=== PATIENT | female | born 1950 | race Caucasian/White ===

== ENCOUNTER 2018-03-12 10:07 | Emergency (ER) | payer MEDICARE ==
[2018-03-12] MEDS ORDERED: Sodium Chloride 0.9% 500 ML IV ONE (10:48)
[2018-03-12] MEDS ORDERED: Sodium Chloride 0.9% 10 ML Syringe FLUSH PRN (10:49)
[2018-03-12] MEDS ORDERED: Sodium Chloride 0.9% 1,000 ML IV SCH (12:00)
--- NOTE | 2018-03-12 12:19 | EDM.PDOC ---
ED HPI GENERAL MEDICAL PROBLEM - General Chief Complaint: Drug or Alcohol Abuse Stated Complaint: SENT BY DR. SANTIZO Time Seen by Provider: 03/12/18 10:35 Source of Information: Reports: Patient, RN Notes Reviewed - History of Present Illness INITIAL COMMENTS - FREE TEXT/NARRATIVE: 67 rolled female has been referred here from her clinic provider turnabout possible acetaminophen toxicity. She was prescribed 100 tablets Tylenol 4 1 week ago and they are totally gone. Patient does take Tylenol with codeine on a regular basis. She takes 2 tablets 4 times daily and has been doing this for over 20 years. This morning the bottle is empty. Her daughter states that her mother is starting to show some signs of confusion and is concerned that she may be forgetting and taking them more than 4 times daily. The patient has no explanation for how or why they can all be gone. She apparently ran out sometime in the last day or so. She states that she took an Advil last evening and then did take 1 again this morning. History of fibromyalgia, probable arthritis and does have what sounds like chronic pain syndrome that has been managed with the Tylenol with Codeine. She did vomit once last evening and that also was of some concern the family. She's not been vomiting this morning. She denies chest or abdominal pain at this time. Treatments OPTICAL DESIGNER: Reports: Acetaminophen Generalized Pain Score (Numeric/FACES): 7 - Related Data Allergies Allergy/AdvReac Type Severity Reaction Status Date / Time fenofibrate [From Tricor] Allergy Rash Verified 03/12/18 10:24 Penicillins Allergy Rash Verified 03/12/18 10:24 Home Meds: Home Meds Acetaminophen with Codeine [Acetaminophen-Cod #4] 2 tab PO Q4H PRN 03/12/18 [ History] Ascorbate Calcium [Vitamin C] 500 mg PO DAILY 03/12/18 [History] Cholecalciferol (Vitamin D3) [Vitamin D3] 1,000 unit PO DAILY 03/12/18 [History] Cyanocobalamin (Vitamin B-12) [Vitamin B-12] 1,000 mcg PO DAILY 03/12/18 [ History] Gemfibrozil 300 mg PO BID 03/12/18 [History] Ibuprofen [Motrin] 400 mg PO Q12HR #14 tab 03/12/18 [Rx] Insulin Glarg,Human.Rec.Analog [Lantus Solostar] 20 - 30 unit SQ BEDTIME [History] Pregabalin [Lyrica] 50 mg PO BID 03/12/18 [History] Rosuvastatin [Crestor] 5 mg PO DAILY 03/12/18 [History] Zonisamide [Zonegran] 100 mg PO DAILY 03/12/18 [History] Zonisamide [Zonegran] 300 mg PO BEDTIME 03/12/18 [History] amLODIPine Besylate [Amlodipine Besylate] 10 mg PO DAILY 03/12/18 [History] sitaGLIPtin Phos/Metformin HCl [Janumet 50-1,000 MG] 50 - 1,000 mg PO BID [History] Past Medical History HEENT History: Reports: Impaired Vision Other HEENT History: reading glasses. Cardiovascular History: Reports: Other (See Below) Other Cardiovascular History: patient states that she had a stress test one month ago and that the "bottom of heart is damaged" Respiratory History: Reports: Other (See Below) Other Respiratory History: pt. states she has uses an inhaler at home Gastrointestinal History: Reports: Bowel Obstruction Other Gastrointestinal History: bowel obstruction when she was 6yrs old Genitourinary History: Reports: UTI, Recurrent Other Genitourinary History: UTI two weeks ago. Antibiotics completed Musculoskeletal History: Reports: Fibromyalgia, Other (See Below) Other Musculoskeletal History: neuropathy Neurological History: Reports: Other (See Below) Other Neuro History: daughter states patient may have some dementia and has been having increased forgetfullness Endocrine/Metabolic History: Reports: Diabetes, Type II Other Endocrine/Metabolic History: Pt. also takes cholesterol medication - Infectious Disease History Infectious Disease History: Reports: Chicken Pox - Past Surgical History GI Surgical History: Reports: Appendectomy Other GI Surgeries/Procedures: appendectomy when she was 6yrs old Female Surgical History: Reports: Breast Biopsy Other Female Surgeries/Procedures: cyst removed. Social & Family History - Tobacco Use Smoking Status *Q: Current Every Day Smoker Years of Tobacco use: 3 Packs/Tins Daily: 0.2 - Caffeine Use Caffeine Use: Reports: Soda - Recreational Drug Use Recreational Drug Use: No ED ROS GENERAL - Review of Systems Review Of Systems: See Below Constitutional: Denies: Fever, Chills, Diaphoresis HEENT: Denies: Throat Pain Respiratory: Denies: Shortness of Breath Cardiovascular: Denies: Chest Pain GI/Abdominal: Reports: Other (No jaundice). Denies: Abdominal Pain, Nausea, Vomiting Musculoskeletal: Reports: Back Pain (Chronic) Skin: Denies: Rash Neurological: Reports: No Symptoms (No acute symptoms) ED EXAM, GENERAL - Physical Exam Exam: See Below Exam Limited By: No Limitations General Appearance: Alert, No Apparent Distress Eye Exam: Bilateral Eye: PERRL Throat/Mouth: Normal Inspection, Normal Oropharynx Head: Atraumatic Neck: Supple, Full Range of Motion Respiratory/Chest: No Respiratory Distress, Lungs Clear, Normal Breath Sounds Cardiovascular: Regular Rate, Rhythm GI/Abdominal: Soft, Non-Tender. No: Guarding Back Exam: No: CVA Tenderness (L), CVA Tenderness (R) Extremities: Normal Inspection, Normal Range of Motion. No: Pedal Edema, Leg Pain Neurological: Alert, No Motor/Sensory Deficits Skin Exam: Warm, Dry, Normal Color Course - Vital Signs Last Recorded V/S: Last Vital Signs Temp 98.2 F 03/12/18 12:20 Pulse 72 03/12/18 12:20 Resp 12 03/12/18 12:20 BP 122/59 L 03/12/18 12:20 Pulse Ox 98 03/12/18 12:20 - Orders/Labs/Meds Orders: Active Orders 24 hr Category Date Time Status Peripheral IV Care [RC] . DIRECTED Care 03/12/18 10:49 Active Sodium Chloride 0.9% [Normal Saline] 1,000 ml Med 03/12/18 12:00 Active IV ASDIRECTED Sodium Chloride 0.9% [Saline Flush] Med 03/12/18 10:49 Active 10 ml FLUSH ASDIRECTED PRN Peripheral IV Insertion Adult [OM.PC] Stat Oth 03/12/18 10:48 Ordered Medication Orders Sodium Chloride (Normal Saline) 1,000 mls @ 150 mls/hr IV ASDIRECTED MYLES Sodium Chloride (Saline Flush) 10 ml FLUSH ASDIRECTED PRN PRN Reason: Keep Vein Open Last Admin: 03/12/18 11:13 Dose: 10 ml Labs: Laboratory Tests 03/12/18 03/12/18 Range/Units 11:15 11:15 WBC 6.75 (3.98-10.04) K/mm3 RBC 3.83 L (3.98-5.22) M/mm3 Hgb 12.1 (11.2-15.7) gm/L Hct 35.1 (34.1-44.9) % MCV 91.6 (79.4-94.8) fl MCH 31.6 (25.6-32.2) pg MCHC 34.5 (32.2-35.5) g/dl RDW Std Deviation 42.7 (36.4-46.3) fL Plt Count 214 (182-369) K/mm3 MPV 10.0 (9.4-12.3) fl Neut % (Auto) 66.6 (34.0-71.1) % Lymph % (Auto) 22.5 (19.3-51.7) % [place]gett % (Auto) 8.7 (4.7-12.5) % Eos % (Auto) 1.8 (0.7-5.8) Baso % (Auto) 0.1 (0.1-1.2) % Neut # (Auto) 4.49 (1.56-6.13) K/mm3 Lymph # (Auto) 1.52 (1.18-3.74) K/mm3 Daggett # (Auto) 0.59 H (0.24-0.36) K/mm3 Eos # (Auto) 0.12 (0.04-0.36) K/mm3 Baso # (Auto) 0.01 (0.01-0.08) K/mm3 Sodium 138 (136-145) mEq/L Potassium 3.8 (3.5-5.1) mEq/L Chloride 103 (98-107) mEq/L Carbon Dioxide 23 (21-32) mEq/L Anion Gap 15.8 H (5-15) BUN 23 H (7-18) mg/dL Creatinine 1.0 (0.55-1.02) mg/dL Est Cr Clr Drug Dosing 43.77 mL/min Estimated GFR (MDRD) 55 (>60) mL/min BUN/Creatinine Ratio 23.0 H (14-18) Glucose 137 H (80-115) mg/dL Calcium 9.2 (8.5-10.1) mg/dL Total Bilirubin 0.3 (0.2-1.0) mg/dL AST 16 (15-37) U/L ALT 14 (14-59) U/L Alkaline Phosphatase 44 L (46-116) U/L Total Protein 7.1 (6.4-8.2) g/dl Albumin 3.7 (3.4-5.0) g/dl Globulin 3.4 gm/dL Albumin/Globulin Ratio 1.1 (1-2) Acetaminophen 0 L (10-30) ug/mL Meds: Medications Generic Name Dose Route Start Last Admin Trade Name Freq PRN Reason Stop Dose Admin Sodium Chloride 1,000 mls @ 150 mls/hr 03/12/18 12:00 Normal Saline IV ASDIRECTED MYLES Sodium Chloride 10 ml 03/12/18 10:49 03/12/18 11:13 Saline Flush FLUSH 10 ml ASDIRECTED PRN Administration Keep Vein Open Discontinued Medications Generic Name Dose Route Start Last Admin Trade Name Freq PRN Reason Stop Dose Admin Sodium Chloride 500 mls @ 999 mls/hr 03/12/18 10:48 03/12/18 11:13 Normal Saline IV 03/12/18 11:18 999 mls/hr .BOLUS ONE Administration - Re-Assessments/Exams Free Text/Narrative Re-Assessment/Exam: 03/12/18 13:12 Acetaminophen level did come back 0 suggesting that she has not had any Tylenol with codeine for at least the last 24 hours or more. She really seems to be doing okay off of that medication at this time. He states she did take 1 Advil last evening and then 1 again this morning and seems to be doing okay with that. Will bridge therapy her for now with Motrin 400 mg twice a day, short- term basis until she can follow-up with her regular provider, , discharge instructions as documented. Departure - Departure Time of Disposition: 12:14 Disposition: Home, Self-Care 01 Condition: Fair Clinical Impression: Fibromyalgia Chronic pain Qualifiers: Chronic pain type: chronic pain syndrome Qualified Code(s): G89.4 - Chronic pain syndrome - Discharge Information Prescriptions: Ibuprofen [Motrin] 400 mg PO Q12HR #14 tab Instructions: Chronic Pain, Adult, Musculoskeletal Pain Referrals: Angel Santizo MD [Primary Care Provider] - Additional Instructions: Urine acetaminophen level today was 0, for now take Motrin as prescribed 400 mg twice daily, take that with food, be sure to drink plenty of water when taking this medication, see Dr. Santizo early next week to discuss further treatment, call for appointment. - My Orders Last 24 Hours: My Active Orders 03/12/18 10:48 Peripheral IV Insertion Adult [OM.PC] Stat 03/12/18 10:49 Peripheral IV Care [RC] . DIRECTED Sodium Chloride 0.9% [Saline Flush] 10 ml FLUSH ASDIRECTED PRN 03/12/18 12:00 Sodium Chloride 0.9% [Normal Saline] 1,000 ml IV ASDIRECTED - Assessment/Plan Last 24 Hours: My Active Orders 03/12/18 10:48 Peripheral IV Insertion Adult [OM.PC] Stat 03/12/18 10:49 Peripheral IV Care [RC] . DIRECTED Sodium Chloride 0.9% [Saline Flush] 10 ml FLUSH ASDIRECTED PRN 03/12/18 12:00 Sodium Chloride 0.9% [Normal Saline] 1,000 ml IV ASDIRECTED
== END 2018-03-12 12:34 | disposition home or self-care (01) ==
LOC: JD.ED 10:07
DX: G89.4 Chronic pain syndrome (principal); M79.7 Fibromyalgia; F17.210 Nicotine dependence, cigarettes, uncomplicated; E11.9 Type 2 diabetes mellitus without complications; Z79.4 Long term (current) use of insulin; Z79.899 Other long term (current) drug therapy; Z88.0 Allergy status to penicillin; Z88.8 Allergy status to other drugs, medicaments and biological substances
CPT/HCPCS: 36415; 80053; 85025; 96360; 99284; G0480; J7040; J7050; 99283

== ENCOUNTER 2023-01-13 16:55 | Emergency (ER) | payer MEDICARE ==
[2023-01-13] MEDS ORDERED: Sodium Chloride 0.9% 1,000 ML ONE (17:27)
[2023-01-13] MEDS ORDERED: Sodium Chloride 0.9% 10 ML Syringe FLUSH PRN (18:04)
[2023-01-13 19:17] LABS: CORONAVIRUS COVID-19 NAA NEGATIVE (NEGATIVE)
[2023-01-13 19:46] LABS: ESTIMATED GFR 48 mL/min (>60)
[2023-01-13] MEDS ORDERED: Nitrofurantoin Monohydrate/Macrocrystalline 100 MG Cap PO ONE (20:19)
== END 2023-01-13 21:00 | disposition home or self-care (01) ==
LOC: JD.ED 16:55
DX: N39.0 Urinary tract infection, site not specified (principal); I10 Essential (primary) hypertension; E11.40 Type 2 diabetes mellitus with diabetic neuropathy, unspecified; Z88.0 Allergy status to penicillin; Z88.8 Allergy status to other drugs, medicaments and biological substances; Z20.822 Contact with and (suspected) exposure to COVID-19
CPT/HCPCS: 0240U; 36415; 71045; 80053; 81001; 85025; 86140; 87086; 99283

== ENCOUNTER 2023-01-22 13:34 | Inpatient (IN) | payer MEDICARE ==
[2023-01-22 14:22] LABS: BASOPHILS ABSOLUTE AUTO 0.02 K/mm3 (0.01-0.08); BASOPHILS PERCENT AUTO 0.2 % (0.1-1.2); EOSINOPHILS ABSOLUTE AUTO 0.14 K/mm3 (0.04-0.36); EOSINOPHILS PERCENT AUTO 1.3 (0.7-5.8); HEMATOCRIT 40.1 % (34.1-44.9); HEMOGLOBIN 13.5 gm/dl (11.2-15.7); IMMATURE GRAN ABSOLUTE AUTO 0.01 K/mm3 (0.00-0.10); IMMATURE GRAN PERCENT AUTO 0.1 % (<=1.0); LYMPHOCYTES ABSOLUTE AUTO 1.74 K/mm3 (1.18-3.74); LYMPHOCYTES PERCENT AUTO 16.7 % (19.3-51.7); MEAN CORPUSCULAR HEMOGLOBIN 29.9 pg (25.6-32.2); MEAN CORPUSCULAR HGB CONC 33.7 g/dl (32.2-35.5); MEAN CORPUSCULAR VOLUME 88.9 fl (79.4-94.8); MEAN PLATELET VOLUME 10.8 fl (9.4-12.3); MONOCYTES ABSOLUTE AUTO 0.62 K/mm3 (0.24-0.36); NEUTROPHILS ABSOLUTE AUTO 7.86 K/mm3 (1.56-6.13); NEUTROPHILS PERCENT AUTO 75.7 % (34.0-71.1); RED BLOOD CELL COUNT 4.51 M/mm3 (3.98-5.22); WHITE BLOOD CELL COUNT,WBC 10.39 K/mm3 (3.98-10.04)
[2023-01-22 14:24] LABS: APPEARANCE,URINE SLT CLOUDY (Clear); BILIRUBIN,URINE NEGATIVE (Negative); COLOR,URINE YELLOW (Yellow); GLUCOSE,URINE TRACE (Negative); KETONES,URINE TRACE (Negative); LEUKOCYTE ESTERASE,URINE TRACE (Negative); NITRITE,URINE NEGATIVE (Negative); OCCULT BLOOD,URINE TRACE-LYSED (Negative); PH,URINE 5.5 (5.0-8.0); PROTEIN,URINE 3+ (Negative); UROBILINOGEN,URINE 0.2 (0.2-1.0)
[2023-01-22 14:25] LABS: PLATELET COUNT,PLT 371 K/mm3 (182-369)
[2023-01-22 14:33] LABS: BACTERIA,URINE MODERATE /hpf (FEW); COARSE GRANULAR CASTS,URINE 0-5 /hpf (0-5); HYALINE CASTS,URINE 0-5 /lpf (0-5); MUCUS,URINE FEW /hpf (FEW); RBC,URINE 0-5 /hpf (0-5); SQUAMOUS EPITHELIAL CELLS,UR 0-5 /hpf (0-5); WBC CLUMPS,URINE FEW /hpf (NOT SEEN); WBC,URINE 20-30 /hpf (0-5)
[2023-01-22 14:43] LABS: A/G RATIO 0.6 (1-2); ALBUMIN 2.9 g/dl (3.4-5.0); ANION GAP 15.2 (5-15); BILIRUBIN TOTAL 0.4 mg/dL (0.2-1.0); BUN/CREATININE RATIO 33.8 (14-18); CALCIUM 9.7 mg/dL (8.5-10.1); CREATININE 1.3 mg/dL (0.55-1.02); EST CRCL DRUG DOSING (CG) 37.16 mL/min; POTASSIUM,K 4.2 mEq/L (3.5-5.1); PROTEIN TOTAL,TP 7.6 g/dl (6.4-8.2)
[2023-01-22] MEDS ORDERED: cefTRIAXone 1 GM in Sodium Chloride 0.9% 100 ML IV ONE (14:56)
[2023-01-22] MEDS ORDERED: Sodium Chloride 0.9% 1,000 ML IV SCH (15:00)
[2023-01-22 17:27] LABS: CORONAVIRUS COVID-19 NAA NEGATIVE (NEGATIVE); INFLUENZA A NAA NEGATIVE (NEGATIVE); RESPIRATORY SYNCYTIAL VIR NAA NEGATIVE (NEGATIVE)
[2023-01-22] MEDS ORDERED: ACETAMINOPHEN COD PO PRN (18:01)
[2023-01-22] MEDS: Sodium Chloride 0.9% 1,000 ML IV SCH (20:39)
[2023-01-22] MEDS ORDERED: INSULIN GLARGINE HUMAN REC ANALOG 100 UNIT/ML SUBCUT SCH (21:28)
[2023-01-22] MEDS ORDERED: INSULIN LISPRO 100 UNIT/ML SUBCUT SCH (21:29)
[2023-01-22] MEDS ORDERED: INSULIN GLARGINE HUMAN REC ANALOG 100 UNIT/ML SUBCUT ONE (22:00)
[2023-01-22] MEDS ORDERED: INSULIN LISPRO 100 UNIT/ML SUBCUT ONE (22:00)
[2023-01-23] MEDS ORDERED: METFORMIN 500 MG PO SCH (07:00)
[2023-01-23] MEDS: INSULIN LISPRO 100 UNIT/ML SUBCUT SCH ×4 (07:55→21:39)
[2023-01-23] MEDS: Enoxaparin 40 MG/0.4 ML Syringe SUBCUT SCH (08:48)
[2023-01-23] MEDS: amLODIPine 10 MG Tab PO SCH (08:49)
[2023-01-23] MEDS: Sodium Chloride 0.9% 1,000 ML IV SCH (10:04)
[2023-01-23 12:58] LABS: HEMATOCRIT 36.8 % (34.1-44.9); HEMOGLOBIN 12.3 gm/dl (11.2-15.7); MEAN CORPUSCULAR HEMOGLOBIN 29.9 pg (25.6-32.2); MEAN CORPUSCULAR HGB CONC 33.4 g/dl (32.2-35.5); MEAN CORPUSCULAR VOLUME 89.3 fl (79.4-94.8); MEAN PLATELET VOLUME 10.6 fl (9.4-12.3); PLATELET COUNT,PLT 331 K/mm3 (182-369); RED BLOOD CELL COUNT 4.12 M/mm3 (3.98-5.22); WHITE BLOOD CELL COUNT,WBC 8.86 K/mm3 (3.98-10.04)
[2023-01-23] MEDS ORDERED: Insulin Glargine,Human Rec. Analog 100 Units/ML 3 ML Pen SUBCUT STA (13:12)
[2023-01-23 13:18] LABS: ANION GAP 13.7 (5-15); BUN/CREATININE RATIO 20.8 (14-18); CALCIUM 8.5 mg/dL (8.5-10.1); CREATININE 1.3 mg/dL (0.55-1.02); EST CRCL DRUG DOSING (CG) 35.72 mL/min; POTASSIUM,K 3.7 mEq/L (3.5-5.1)
[2023-01-23] MEDS: Pregabalin 75 MG Cap PO SCH ×2 (13:22→21:33)
[2023-01-23] MEDS ORDERED: METOPROLOL TARTRATE PO SCH (14:00)
[2023-01-23] MEDS ORDERED: LISINOPRIL 5 MG PO SCH (14:00)
[2023-01-23] MEDS: cefTRIAXone 1 GM in Sodium Chloride 0.9% 100 ML IV SCH (14:31)
[2023-01-23] MEDS: Lisinopril 5 MG Tab PO SCH ×2 (14:34→16:27)
[2023-01-23] MEDS ORDERED: LISINOPRIL 5 MG PO ONE (14:34)
[2023-01-23] MEDS ORDERED: METOPROLOL TARTRATE PO ONE (14:36)
[2023-01-23] MEDS: Metoprolol Tartrate 50 MG Tab PO SCH ×3 (14:36→21:33)
[2023-01-23] MEDS: Insulin Lispro 100 Unit/ML 3 ML KwikPen SUBCUT SCH ×2 (15:02→17:15)
[2023-01-23] MEDS: Insulin Glargine,Human Rec. Analog 100 Units/ML 3 ML Pen SUBCUT SCH ×2 (15:03→21:37)
[2023-01-23] MEDS: Non-Formulary Medication 1 Each (Sitagliptin Phos/Metformin Hcl [Janumet 50-1,000 Mg] 1 EA PO SCH (15:03)
[2023-01-23] MEDS: metFORMIN 500 MG Tab PO SCH (17:16)
[2023-01-23] MEDS: Famotidine 20 MG Tab PO SCH (21:33)
[2023-01-24] MEDS: Clopidogrel 75 MG Tab PO SCH ×2 (05:31→07:17)
[2023-01-24] MEDS: Aspirin 81 MG Tab.EC PO SCH (05:31)
[2023-01-24] MEDS: metFORMIN 500 MG Tab PO SCH ×2 (06:09→17:18)
[2023-01-24] MEDS: Insulin Lispro 100 Unit/ML 3 ML KwikPen SUBCUT SCH ×4 (06:45→17:19)
[2023-01-24] MEDS: Insulin Glargine,Human Rec. Analog 100 Units/ML 3 ML Pen SUBCUT SCH ×2 (06:45→21:34)
[2023-01-24] MEDS: Non-Formulary Medication 1 Each (Sitagliptin Phos/Metformin Hcl [Janumet 50-1,000 Mg] 1 EA PO SCH (06:46)
[2023-01-24] MEDS: amLODIPine 10 MG Tab PO SCH (08:03)
[2023-01-24] MEDS: Famotidine 20 MG Tab PO SCH ×2 (08:04→21:36)
[2023-01-24] MEDS: Metoprolol Tartrate 50 MG Tab PO SCH ×2 (08:04→21:38)
[2023-01-24] MEDS: Pregabalin 75 MG Cap PO SCH ×2 (08:05→21:36)
[2023-01-24] MEDS: Enoxaparin 40 MG/0.4 ML Syringe SUBCUT SCH (08:05)
[2023-01-24] MEDS ORDERED: Lisinopril 5 MG Tab PO SCH (09:00)
[2023-01-24] MEDS: INSULIN LISPRO 100 UNIT/ML SUBCUT SCH ×4 (09:23→23:32)
[2023-01-24] MEDS: cefTRIAXone 1 GM in Sodium Chloride 0.9% 100 ML IV SCH (14:09)
[2023-01-25] MEDS: Clopidogrel 75 MG Tab PO SCH (05:25)
[2023-01-25] MEDS: Aspirin 81 MG Tab.EC PO SCH (05:25)
[2023-01-25] MEDS: INSULIN LISPRO 100 UNIT/ML SUBCUT SCH ×2 (07:39→10:51)
[2023-01-25] MEDS: amLODIPine 10 MG Tab PO SCH (08:14)
[2023-01-25] MEDS: Metoprolol Tartrate 50 MG Tab PO SCH (08:14)
[2023-01-25] MEDS: Pregabalin 75 MG Cap PO SCH (08:14)
[2023-01-25] MEDS: metFORMIN 500 MG Tab PO SCH (08:14)
[2023-01-25] MEDS: Famotidine 20 MG Tab PO SCH (08:15)
[2023-01-25] MEDS: Enoxaparin 40 MG/0.4 ML Syringe SUBCUT SCH (08:15)
[2023-01-25] MEDS: Insulin Lispro 100 Unit/ML 3 ML KwikPen SUBCUT SCH ×2 (08:15→11:11)
[2023-01-25] MEDS ORDERED: Lisinopril 2.5 MG Tab PO SCH (09:00)
== END 2023-01-25 14:20 | disposition home or self-care (01) | DRG 689 ==
LOC: JD.ED 13:34 → JD.MS 17:48 → OBSVTOIN 01-23 12:05
PROVIDERS: ADMIT Hospitalist; ATTEND Hospitalist
DX: N39.0 Urinary tract infection, site not specified (principal); G93.41 Metabolic encephalopathy; Z66 Do not resuscitate; I10 Essential (primary) hypertension; E78.00 Pure hypercholesterolemia, unspecified; M79.7 Fibromyalgia; F03.90 Unspecified dementia, unspecified severity, without behavioral disturbance, psychotic disturbance, mood disturbance, and anxiety; E78.5 Hyperlipidemia, unspecified; Z95.2 Presence of prosthetic heart valve; Z20.822 Contact with and (suspected) exposure to COVID-19; E11.40 Type 2 diabetes mellitus with diabetic neuropathy, unspecified; H91.90 Unspecified hearing loss, unspecified ear; B96.1 Klebsiella pneumoniae [K. pneumoniae] as the cause of diseases classified elsewhere; Z96.649 Presence of unspecified artificial hip joint; G89.4 Chronic pain syndrome; Z88.8 Allergy status to other drugs, medicaments and biological substances; Z79.899 Other long term (current) drug therapy; Z88.0 Allergy status to penicillin; Z79.82 Long term (current) use of aspirin; Z79.4 Long term (current) use of insulin; Z95.4 Presence of other heart-valve replacement; Z95.1 Presence of aortocoronary bypass graft; Z98.890 Other specified postprocedural states; Z90.49 Acquired absence of other specified parts of digestive tract
CPT/HCPCS: 0241U; 36415; 80048; 80053; 81001; 82947; 83605; 85025; 85027; 87086; 96365; 96372; 97116-GP; 97162-GP; 97530-GP; 99283; 99285-25; A9270-GY; G0378; J0696; J1650; J1815; J1815-GY; J3490; J7030

== ENCOUNTER 2024-04-06 08:04 | Inpatient (IN) | payer MEDICARE, MEDICAID ==
[2024-04-06 08:43] LABS: APPEARANCE,URINE SLT CLOUDY (Clear); BILIRUBIN,URINE NEGATIVE (Negative); COLOR,URINE YELLOW (Yellow); GLUCOSE,URINE NEGATIVE (Negative); KETONES,URINE NEGATIVE (Negative); LEUKOCYTE ESTERASE,URINE 2+ (Negative); NITRITE,URINE POSITIVE (Negative); OCCULT BLOOD,URINE NEGATIVE (Negative); PROTEIN,URINE 2+ (Negative); UROBILINOGEN,URINE 0.2 (0.2-1.0)
[2024-04-06 09:01] LABS: BACTERIA,URINE MANY /hpf (FEW); MUCUS,URINE NOT SEEN /hpf (FEW); RBC,URINE 0-5 /hpf (0-5); SQUAMOUS EPITHELIAL CELLS,UR 0-5 /hpf (0-5); WBC CLUMPS,URINE RARE /hpf (NOT SEEN); YEAST,URINE RARE (NOT SEEN)
[2024-04-06 09:16] LABS: BASOPHILS PERCENT AUTO 0.2 % (0.0-1.0); EOSINOPHILS ABSOLUTE AUTO 0.5 K/mm3 (0.0-0.4); EOSINOPHILS PERCENT AUTO 4.7 % (0.0-6.0); HEMOGLOBIN 9.4 gm/dl (12.0-16.0); IMMATURE GRAN ABSOLUTE AUTO 0.03 K/mm3 (0.00-0.05); IMMATURE GRAN PERCENT AUTO 0.3 % (0.0-0.4); LYMPHOCYTES ABSOLUTE AUTO 1.4 K/mm3 (1.0-4.8); LYMPHOCYTES PERCENT AUTO 13.9 % (24.0-44.0); MEAN CORPUSCULAR HEMOGLOBIN 29.7 pg (28.0-32.0); MEAN CORPUSCULAR HGB CONC 32.4 g/dl (32.0-36.0); MEAN CORPUSCULAR VOLUME 91.5 fl (83.0-99.0); MONOCYTES ABSOLUTE AUTO 1.3 K/mm3 (0.0-0.8); MONOCYTES PERCENT AUTO 12.8 % (0.0-8.0); NEUTROPHILS PERCENT AUTO 68.1 % (41.0-71.0); PLATELET COUNT,PLT 194 K/mm3 (150-400); RED BLOOD CELL COUNT 3.17 M/mm3 (4.10-5.30); WHITE BLOOD CELL COUNT,WBC 10.31 K/mm3 (3.9-11.3)
[2024-04-06 09:27] LABS: A/G RATIO 0.7 (1-2); ALANINE AMINOTRANSFERASE,ALT 26 U/L (14-59); ALBUMIN 2.6 g/dl (3.4-5.0); ALKALINE PHOSPHATASE 49 U/L (46-116); ANION GAP 14.1 (5-15); ASPARTATE AMNIOTRANSFERASE,AST 20 U/L (15-37); BILIRUBIN TOTAL 0.3 mg/dL (0.2-1.0); BLOOD UREA NITROGEN,BUN 58 mg/dL (7-18); BUN/CREATININE RATIO 24.2 (14-18); C-REACTIVE PROTEIN 1.02 mg/dL (<0.30); CALCIUM 7.9 mg/dL (8.5-10.1); CARBON DIOXIDE,CO2 24 mEq/L (21-32); CHLORIDE,CL 106 mEq/L (98-107); CREATININE 2.4 mg/dL (0.55-1.02); ESTIMATED GFR 21 mL/min (>60); GLUCOSE RANDOM 203 mg/dL (70-99); POTASSIUM,K 5.1 mEq/L (3.5-5.1); PROTEIN TOTAL,TP 6.4 g/dl (6.4-8.2); SODIUM,NA 139 mEq/L (136-145)
[2024-04-06] MEDS: Sodium Chloride 0.9% 10 ML Syringe FLUSH PRN (09:29)
[2024-04-06] MEDS: Sodium Chloride 0.9% 1,000 ML IV STA (09:29)
[2024-04-06] MEDS: cefTRIAXone 2 GM in Sodium Chloride 0.9% 100 ML IV ONE (09:32)
[2024-04-06 10:08] LABS: CORONAVIRUS COVID-19 NAA NEGATIVE (NEGATIVE); INFLUENZA A NAA NEGATIVE (NEGATIVE); RESPIRATORY SYNCYTIAL VIR NAA NEGATIVE (NEGATIVE)
[2024-04-06] MEDS ORDERED: Docusate Sodium 100 MG Cap PO PRN (12:02)
[2024-04-06] MEDS ORDERED: Polyethylene Glycol 3350 Powder 17 GM Packet PO PRN (12:02)
[2024-04-06] MEDS: Heparin Sodium 5,000 Units/ML Vial SUBCUT SCH (12:35)
[2024-04-06 13:41] LABS: IRON,FE 39 ug/dL (50-170); PERCENT FE SATURATION 16 % (20-55); TRANSFERRIN 196 mg/dL (202-364)
[2024-04-06 14:00] LABS: TOTAL IRON BINDING CAPACITY 245 ug/dL (100-400)
[2024-04-06] MEDS: Sodium Chloride 0.9% 1,000 ML IV SCH (17:38)
[2024-04-06] MEDS: Insulin Lispro 100 Unit/ML 3 ML KwikPen SUBCUT SCH (18:44)
[2024-04-06] MEDS: Metoprolol Tartrate 50 MG Tab PO SCH (20:09)
[2024-04-06] MEDS: Famotidine 20 MG Tab PO SCH (20:09)
[2024-04-06] MEDS ORDERED: Gemfibrozil 600 MG Tab PO SCH (21:00)
[2024-04-07 04:52] LABS: BASOPHILS PERCENT AUTO 0.1 % (0.0-1.0); EOSINOPHILS ABSOLUTE AUTO 0.4 K/mm3 (0.0-0.4); EOSINOPHILS PERCENT AUTO 4.9 % (0.0-6.0); HEMATOCRIT 26.1 % (37.0-47.0); HEMOGLOBIN 8.4 gm/dl (12.0-16.0); IMMATURE GRAN ABSOLUTE AUTO 0.03 K/mm3 (0.00-0.05); IMMATURE GRAN PERCENT AUTO 0.4 % (0.0-0.4); LYMPHOCYTES ABSOLUTE AUTO 1.6 K/mm3 (1.0-4.8); LYMPHOCYTES PERCENT AUTO 21.4 % (24.0-44.0); MEAN CORPUSCULAR HEMOGLOBIN 29.5 pg (28.0-32.0); MEAN CORPUSCULAR HGB CONC 32.2 g/dl (32.0-36.0); MEAN CORPUSCULAR VOLUME 91.6 fl (83.0-99.0); MEAN PLATELET VOLUME 11.2 fl (9.4-12.3); MONOCYTES ABSOLUTE AUTO 0.9 K/mm3 (0.0-0.8); MONOCYTES PERCENT AUTO 11.6 % (0.0-8.0); NEUTROPHILS ABSOLUTE AUTO 4.6 K/mm3 (1.8-7.7); NEUTROPHILS PERCENT AUTO 61.6 % (41.0-71.0); PLATELET COUNT,PLT 160 K/mm3 (150-400); RED BLOOD CELL COUNT 2.85 M/mm3 (4.10-5.30); WHITE BLOOD CELL COUNT,WBC 7.52 K/mm3 (3.9-11.3)
[2024-04-07 05:22] LABS: A/G RATIO 0.6 (1-2); ALBUMIN 2.3 g/dl (3.4-5.0); ANION GAP 14.7 (5-15); BILIRUBIN TOTAL 0.2 mg/dL (0.2-1.0); BUN/CREATININE RATIO 27.9 (14-18); C-REACTIVE PROTEIN 2.46 mg/dL (<0.30); CALCIUM 7.5 mg/dL (8.5-10.1); CREATININE 1.9 mg/dL (0.55-1.02); EST CRCL DRUG DOSING (CG) 23.11 mL/min; MAGNESIUM 1.6 mg/dL (1.8-2.4); POTASSIUM,K 4.7 mEq/L (3.5-5.1); PROTEIN TOTAL,TP 5.9 g/dl (6.4-8.2)
[2024-04-07] MEDS: Pantoprazole 40 MG Tab.CR PO SCH (08:45)
[2024-04-07] MEDS: Clopidogrel 75 MG Tab PO SCH (08:45)
[2024-04-07] MEDS: Citalopram 10 MG Tab PO SCH (08:45)
[2024-04-07] MEDS: Ferrous Sulfate 324 MG Tab.EC PO SCH (08:45)
[2024-04-07] MEDS: Aspirin 81 MG Tab.EC PO SCH (08:45)
[2024-04-07] MEDS: Cetirizine 10 MG Tab PO SCH (08:45)
[2024-04-07] MEDS: Ezetimibe 10 MG Tab PO SCH (08:45)
[2024-04-07] MEDS: Magnesium Sulfate/Water 2 GM in Premix Bag 1 BAG IV ONE ×2 (08:47→10:41)
[2024-04-07] MEDS ORDERED: Cetirizine 10 MG Tab PO SCH (09:00)
[2024-04-07] MEDS: Insulin Glargine,Human Rec. Analog 100 Units/ML 3 ML Pen SUBCUT SCH (09:17)
[2024-04-07] MEDS: cefTRIAXone 2 GM in Sodium Chloride 0.9% 100 ML IV SCH (09:24)
[2024-04-07] MEDS: Gemfibrozil 600 MG Tab PO SCH (10:34)
[2024-04-07] MEDS: Rosuvastatin 10 MG Tab PO SCH (18:50)
[2024-04-07] MEDS: Famotidine 20 MG Tab PO SCH (20:47)
[2024-04-07] MEDS: Nystatin Topical Powder 15 GM Bottle TOP SCH (21:01)
[2024-04-08 04:55] LABS: BASOPHILS PERCENT AUTO 0.3 % (0.0-1.0); EOSINOPHILS ABSOLUTE AUTO 0.3 K/mm3 (0.0-0.4); EOSINOPHILS PERCENT AUTO 4.2 % (0.0-6.0); IMMATURE GRAN ABSOLUTE AUTO 0.03 K/mm3 (0.00-0.05); IMMATURE GRAN PERCENT AUTO 0.5 % (0.0-0.4); LYMPHOCYTES ABSOLUTE AUTO 1.4 K/mm3 (1.0-4.8); LYMPHOCYTES PERCENT AUTO 22.1 % (24.0-44.0); MEAN CORPUSCULAR HEMOGLOBIN 29.1 pg (28.0-32.0); MEAN CORPUSCULAR VOLUME 90.9 fl (83.0-99.0); MEAN PLATELET VOLUME 11.5 fl (9.4-12.3); MONOCYTES ABSOLUTE AUTO 0.7 K/mm3 (0.0-0.8); MONOCYTES PERCENT AUTO 11.3 % (0.0-8.0); NEUTROPHILS PERCENT AUTO 61.6 % (41.0-71.0); PLATELET COUNT,PLT 147 K/mm3 (150-400); RED BLOOD CELL COUNT 2.75 M/mm3 (4.10-5.30); WHITE BLOOD CELL COUNT,WBC 6.47 K/mm3 (3.9-11.3)
[2024-04-08 05:27] LABS: A/G RATIO 0.6 (1-2); ALBUMIN 2.3 g/dl (3.4-5.0); ANION GAP 15.6 (5-15); BILIRUBIN TOTAL 0.2 mg/dL (0.2-1.0); BUN/CREATININE RATIO 25.9 (14-18); C-REACTIVE PROTEIN 2.54 mg/dL (<0.30); CALCIUM 7.4 mg/dL (8.5-10.1); CREATININE 1.7 mg/dL (0.55-1.02); EST CRCL DRUG DOSING (CG) 25.83 mL/min; MAGNESIUM 2.1 mg/dL (1.8-2.4); POTASSIUM,K 4.6 mEq/L (3.5-5.1); PROTEIN TOTAL,TP 5.9 g/dl (6.4-8.2)
[2024-04-08] MEDS: Cetirizine 10 MG Tab PO SCH (08:12)
[2024-04-09 10:36] LABS: BASOPHILS PERCENT AUTO 0.3 % (0.0-1.0); EOSINOPHILS ABSOLUTE AUTO 0.2 K/mm3 (0.0-0.4); EOSINOPHILS PERCENT AUTO 2.9 % (0.0-6.0); HEMATOCRIT 26.2 % (37.0-47.0); HEMOGLOBIN 8.6 gm/dl (12.0-16.0); IMMATURE GRAN ABSOLUTE AUTO 0.03 K/mm3 (0.00-0.05); IMMATURE GRAN PERCENT AUTO 0.4 % (0.0-0.4); LYMPHOCYTES ABSOLUTE AUTO 1.6 K/mm3 (1.0-4.8); LYMPHOCYTES PERCENT AUTO 21.2 % (24.0-44.0); MEAN CORPUSCULAR HEMOGLOBIN 29.7 pg (28.0-32.0); MEAN CORPUSCULAR HGB CONC 32.8 g/dl (32.0-36.0); MEAN CORPUSCULAR VOLUME 90.3 fl (83.0-99.0); MEAN PLATELET VOLUME 11.4 fl (9.4-12.3); MONOCYTES ABSOLUTE AUTO 0.9 K/mm3 (0.0-0.8); MONOCYTES PERCENT AUTO 12.4 % (0.0-8.0); NEUTROPHILS ABSOLUTE AUTO 4.7 K/mm3 (1.8-7.7); NEUTROPHILS PERCENT AUTO 62.8 % (41.0-71.0); PLATELET COUNT,PLT 158 K/mm3 (150-400); WHITE BLOOD CELL COUNT,WBC 7.51 K/mm3 (3.9-11.3)
[2024-04-09 10:46] LABS: ANION GAP 12.8 (5-15); POTASSIUM,K 3.8 mEq/L (3.5-5.1)
[2024-04-09 10:47] LABS: A/G RATIO 0.6 (1-2); ALBUMIN 2.4 g/dl (3.4-5.0); BILIRUBIN TOTAL 0.3 mg/dL (0.2-1.0); CALCIUM 7.3 mg/dL (8.5-10.1); CREATININE 1.4 mg/dL (0.55-1.02); EST CRCL DRUG DOSING (CG) 31.37 mL/min; PROTEIN TOTAL,TP 6.2 g/dl (6.4-8.2)
[2024-04-09 11:00] LABS: C-REACTIVE PROTEIN 2.34 mg/dL (<0.30)
[2024-04-09] MEDS: Acetaminophen 325 MG Tab PO PRN (20:37)
[2024-04-10] MEDS: traMADol 50 MG Tab PO PRN (03:45)
[2024-04-10 06:20] LABS: BASOPHILS PERCENT AUTO 0.3 % (0.0-1.0); EOSINOPHILS ABSOLUTE AUTO 0.2 K/mm3 (0.0-0.4); EOSINOPHILS PERCENT AUTO 1.9 % (0.0-6.0); HEMATOCRIT 25.9 % (37.0-47.0); HEMOGLOBIN 8.4 gm/dl (12.0-16.0); IMMATURE GRAN ABSOLUTE AUTO 0.05 K/mm3 (0.00-0.05); IMMATURE GRAN PERCENT AUTO 0.6 % (0.0-0.4); LYMPHOCYTES ABSOLUTE AUTO 1.2 K/mm3 (1.0-4.8); LYMPHOCYTES PERCENT AUTO 13.8 % (24.0-44.0); MEAN CORPUSCULAR HEMOGLOBIN 29.3 pg (28.0-32.0); MEAN CORPUSCULAR HGB CONC 32.4 g/dl (32.0-36.0); MEAN CORPUSCULAR VOLUME 90.2 fl (83.0-99.0); MEAN PLATELET VOLUME 11.6 fl (9.4-12.3); MONOCYTES PERCENT AUTO 11.7 % (0.0-8.0); NEUTROPHILS ABSOLUTE AUTO 6.4 K/mm3 (1.8-7.7); NEUTROPHILS PERCENT AUTO 71.7 % (41.0-71.0); PLATELET COUNT,PLT 153 K/mm3 (150-400); RED BLOOD CELL COUNT 2.87 M/mm3 (4.10-5.30)
[2024-04-10 06:43] LABS: A/G RATIO 0.6 (1-2); ALBUMIN 2.5 g/dl (3.4-5.0); ANION GAP 13.6 (5-15); BILIRUBIN TOTAL 0.3 mg/dL (0.2-1.0); BUN/CREATININE RATIO 16.2 (14-18); C-REACTIVE PROTEIN 3.87 mg/dL (<0.30); CALCIUM 7.4 mg/dL (8.5-10.1); CREATININE 1.3 mg/dL (0.55-1.02); EST CRCL DRUG DOSING (CG) 33.78 mL/min; MAGNESIUM 1.8 mg/dL (1.8-2.4); POTASSIUM,K 3.6 mEq/L (3.5-5.1); PROTEIN TOTAL,TP 6.5 g/dl (6.4-8.2)
[2024-04-10] MEDS ORDERED: hydrALAZINE 20 MG/ML SDV IVPUSH PRN (09:23)
[2024-04-11] MEDS ORDERED: Melatonin 3 MG Tab PO PRN (07:15)
[2024-04-11 09:09] LABS: ANION GAP 9.9 (5-15); BUN/CREATININE RATIO 14.6 (14-18); CALCIUM 7.2 mg/dL (8.5-10.1); CREATININE 1.3 mg/dL (0.55-1.02); EST CRCL DRUG DOSING (CG) 33.78 mL/min; PHOSPHORUS 2.2 mg/dL (2.6-4.7); POTASSIUM,K 3.9 mEq/L (3.5-5.1)
== END 2024-04-12 13:29 | disposition home or self-care (01) | DRG 682 ==
LOC: JD.ED 08:04 → JD.MS 10:13
PROVIDERS: ADMIT Internal Medicine; ATTEND Internal Medicine
DX: R53.1 Weakness (principal); N17.9 Acute kidney failure, unspecified; G93.41 Metabolic encephalopathy; N30.00 Acute cystitis without hematuria; F03.90 Unspecified dementia, unspecified severity, without behavioral disturbance, psychotic disturbance, mood disturbance, and anxiety; R29.6 Repeated falls; M25.559 Pain in unspecified hip; H91.90 Unspecified hearing loss, unspecified ear; H54.7 Unspecified visual loss; E78.00 Pure hypercholesterolemia, unspecified; I10 Essential (primary) hypertension; E11.51 Type 2 diabetes mellitus with diabetic peripheral angiopathy without gangrene; K21.9 Gastro-esophageal reflux disease without esophagitis; Z79.01 Long term (current) use of anticoagulants; M79.7 Fibromyalgia; E11.40 Type 2 diabetes mellitus with diabetic neuropathy, unspecified; Z96.649 Presence of unspecified artificial hip joint; E86.0 Dehydration; G89.4 Chronic pain syndrome; Z66 Do not resuscitate; I25.10 Atherosclerotic heart disease of native coronary artery without angina pectoris; E88.09 Other disorders of plasma-protein metabolism, not elsewhere classified; E83.42 Hypomagnesemia; D64.9 Anemia, unspecified; B96.20 Unspecified Escherichia coli [E. coli] as the cause of diseases classified elsewhere; Z88.0 Allergy status to penicillin; Z88.8 Allergy status to other drugs, medicaments and biological substances; Z79.02 Long term (current) use of antithrombotics/antiplatelets; Z79.4 Long term (current) use of insulin; Z79.84 Long term (current) use of oral hypoglycemic drugs; Z79.82 Long term (current) use of aspirin; Z79.899 Other long term (current) drug therapy; Z87.440 Personal history of urinary (tract) infections; Z95.1 Presence of aortocoronary bypass graft; Z95.2 Presence of prosthetic heart valve; Z86.16 Personal history of COVID-19; Z87.891 Personal history of nicotine dependence
CPT/HCPCS: 0241U; 36415; 51798; 71045; 80048; 80053; 81001; 82947; 83540; 83735; 84100; 84466; 85025; 86140; 86850; 86900; 86901; 87086; 87088; 87186; 96365; 97161; 99285; A9270-GY; J0696; J1644; J1815; J1815-GY; J3475; J3490; J7030; U0002

== ENCOUNTER 2025-02-06 22:52 | Emergency (ER) | payer MEDICARE, MEDICAID ==
[2025-02-06] MEDS: Oxymetazoline 0.05% Nasal Spray 30 ML Bottle ONE (23:23)
[2025-02-06] MEDS: Oxymetazoline 0.05% Nasal Spray 30 ML Bottle NAS ONE (23:23)
== END 2025-02-07 00:50 | disposition home or self-care (01) ==
LOC: JD.ED 22:52
DX: R04.0 Epistaxis (principal); R51.9 Headache, unspecified; I10 Essential (primary) hypertension; E78.00 Pure hypercholesterolemia, unspecified; K21.9 Gastro-esophageal reflux disease without esophagitis; E11.9 Type 2 diabetes mellitus without complications; Z88.0 Allergy status to penicillin; Z88.8 Allergy status to other drugs, medicaments and biological substances; Z79.82 Long term (current) use of aspirin; Z79.4 Long term (current) use of insulin; Z79.899 Other long term (current) drug therapy; Z86.16 Personal history of COVID-19
CPT/HCPCS: 70450; 99284; A9270